=== PATIENT | male | born 1995 | race Caucasian/White ===

== ENCOUNTER 2016-10-24 20:05 | Emergency (ER) | payer BC ==
[~2016-10-24] VITALS: Ht 167.6 cm; Wt 70.9 kg
[2016-10-24 20:32] VITALS: TEMP 36.9; Ht 167.6 cm; Wt 70.9 kg
[2016-10-24] MEDS ORDERED: ACETAMINOPHEN 325 MG TAB PO STA (21:02)
--- NOTE | 2016-10-24 21:51 | DIAGNOSTIC IMAGING REPORT ---
CT OF THE HEAD WITHOUT CONTRAST CLINICAL HISTORY: Struck in occipital region with soccer ball. +LOC COMPARISON STUDY: No previous studies for comparison. CT DOSE: 537.48 mGy.cm TECHNIQUE: Helical axial images of the head were obtained without IV contrast. Automated exposure control was utilized for the study. FINDINGS: No acute intracranial cranial hemorrhage, midline shift or mass effect is present. Brain is normal. Ventricular system is normal. Basilar cisterns are patent. There are no extra axial collections. Noland-white differentiation is maintained. There is no calvarial fracture. There is minimal mucosal thickening of the ethmoid sinuses. Mastoid air cells are clear. IMPRESSION: 1. No acute intracranial findings. 2. No calvarial fracture. Electronically signed by: Nino Sargent M.D. 10/24/2016 9:49 PM Dictated Date/Time: 10/24/2016 9:48 PM
--- NOTE | 2016-10-24 22:35 | EMERGENCY ROOM VISIT NOTE ---
History First contact with patient: 20:55 Chief Complaint: HEAD INJURY (MINOR) Stated Complaint: CONCUSSION History of Present Illness The patient is a 21 year old male who presents to the Emergency Room via private vehicle with complaints of "concussion". The patient states that around 7:20 PM he was participating an intramural soccer when an individual kicked the ball with a lot of force, subsequently the ball struck him in the back of the head. He states that he lost consciousness and stumbled. He states that he was evaluated by medical personnel who thought he may have had a concussion. There is associated nausea, and dizziness. He denies any neck pain , vision changes, vomiting, chest pain. Review of Systems A complete 6-point Review of Systems was discussed with the patient, with pertinent positives and negatives listed in the History of Present Illness. All remaining Review of Systems questions can be considered negative unless otherwise specified. Past Medical/Surgical History No pertinent past medical history at this time. Family History No pertinent family history at this time. Social History Smoking Status: Never Smoker Social History: Patient is a [employer] student. Current/Historical Medications No Active Prescriptions or Reported Meds Allergies Coded Allergies: No Known Allergies (Unverified , 10/24/16) Physical Exam Vital Signs Date Time Temp Pulse Resp B/P Pulse Ox O2 Delivery O2 Flow Rate FiO2 10/24/16 22:50 72 18 109/74 98 10/24/16 20:59 18 98 10/24/16 20:32 36.9 83 18 139/99 98 Room Air Physical Exam VITAL SIGNS - Vital signs and nursing notes were reviewed. Patient is afebrile , blood pressure 139/99, non-tachycardic and saturating well on room air 98%. GENERAL -21-year-old male appearing his stated age. Communicates well with provider and answers questions appropriately. SKIN -no breaks in the integument. HEAD - Normocephalic, Atraumatic. No Fulton's Sign or Raccoon's Eyes. No depressed skull fractures palpable. No evidence of skull fracture. There is occipital region tenderness. EYES - PERRL with EOMI bilaterally. Without subconjunctival hemorrhage. Palpebral conjunctiva pink and moist with no injection. EARS - No deformities of external structures noted on gross examination bilaterally. No hemotympanum present. No tympanic perforation noted. Handle of malleus, umbo, cone of light, pars tensa/flaccid all easily visualized. NOSE - Midline and without cyanosis. No epistaxis or clear watery discharge noted. Septum midline without deviation. MOUTH/OROPHARYNX - Without perioral cyanosis. Tongue midline with equal elevation of palate bilaterally. No blood noted in the oropharynx. No tonsillar hypertrophy, erythema, or exudates noted. No dental fractures noted. NECK - no tenderness to palpation over the cervical spinous processes. No cervical paraspinal muscle tenderness noted. LUNGS - Chest wall symmetric without accessory muscle use, intercostals retractions, or central cyanosis. No flail chest or depressed fractures noted. No paradoxical chest wall movements noted. No tenderness to palpation across the anterior and posterior chest shaw. Normal vesicular breath sounds CTA B/ L. No wheezes, rales, or rhonchi appreciated. CARDIAC - RRR with S1/S2. No murmur, rubs, or gallops appreciated. EXTREMITIES - No gross deformities noted of the extremities. No tenderness to palpation of the extremities. +3/5 radial and dorsalis pedis pulses palpated throughout. +5/5 strength noted in UE/LE bilaterally. NEUROLOGIC - Cranial nerves II through XII grossly intact. Sensory intact to light touch throughout. Patellar reflexes +2/4. PSYCH - A&Ox3 and cooperates fully with examiner. Pt is very pleasant and interacts well with examiner. Medical Decision & Procedures ER Provider Diagnostic Interpretation: CT OF THE HEAD WITHOUT CONTRAST CLINICAL HISTORY: Struck in occipital region with soccer ball. +LOC COMPARISON STUDY: No previous studies for comparison. CT DOSE: 537.48 mGy.cm TECHNIQUE: Helical axial images of the head were obtained without IV contrast. Automated exposure control was utilized for the study. FINDINGS: No acute intracranial cranial hemorrhage, midline shift or mass effect is present. Brain is normal. Ventricular system is normal. Basilar cisterns are patent. There are no extra axial collections. Noland-white differentiation is maintained. There is no calvarial fracture. There is minimal mucosal thickening of the ethmoid sinuses. Mastoid air cells are clear. IMPRESSION: 1. No acute intracranial findings. 2. No calvarial fracture. Electronically signed by: Nino Sargent M.D. Medications Administered Medications (Trade) Dose Ordered Sig/Tran Route Start Time Stop Time Status Last Admin Dose Admin Acetaminophen (Tylenol Tab) 650 mg NOW STAT PO 10/24/16 21:02 4/5/17 21:03 DC 10/24/16 21:10 650 MG Medical Decision Patient was seen and evaluated as above. After obtaining a thorough history and physical examination benefits versus risk of obtaining CT scan of the head was initiated. The decision was made to scan. Patient presents with symptoms of a concussion. CT scan was negative with results as above. Patient was educated upon management. He was educated on the importance of follow-up with [facility]. There were no neurologic deficits on exam. He'll be diagnosed with a concussion. He had questions prior to discharge, educated upon worrisome symptoms which to return and was discharged home in good condition. In the evaluation and treatment of this patient, the following differential diagnoses were considered: Concussion, Contrecoup Injury, Brain Tumor, Depression, Encephalitis, Hypothyroidism, Meningitis, CVA, TIA, Migraine, Cluster Headache, Intracranial Abnormality, Intracranial Hemorrhage, Subdural Hematoma, Subarachnoid Hemorrhage, Hydrocephalus. Impression Primary Impression: Closed head injury Additional Impression: Concussion Departure Information Dispostion Home / Self-Care Condition GOOD Prescriptions No Active Prescriptions or Reported Meds Referrals [facility] (PCP) Patient Instructions My [facility] Additional Instructions You have been treated in the Emergency Department for a Closed Head Injury. CT Scan of your head/brain demonstrated no acute bleeding or other abnormalities. This does not completely rule out the risk for future damage to the brain. For pain control, you can use the following [id number] medicines (if >12 yo): - Regular strength (325mg/tab) Tylenol (acetaminophen) 2 tabs every 6 hours as needed. Do not exceed 12 tablets in a 24 hour period. Avoid taking more than 3 grams (3000 mg) of Tylenol per day. This includes any other sources of acetaminophen you may take on a regular basis. - Regular strength (200 mg/tab) Advil (ibuprofen) 1-2 tabs every 4-6 hours as needed. Do not exceed a dose of 3200 mg per day. You should relax in a quiet, dark place for the rest of the day. Avoid any possible triggers including: cigarette smoke, caffeine, nicotine, chocolate, wine, beer, loud noises or music, or bright lights. You should schedule a follow-up appointment in 2-3 days with your Primary Care Provider or established Neurologist for further evaluation and treatment of your Headache. Please schedule a follow-up with the personnel services in the next 2-3 days for recheck. Please return here sooner for worsening of your symptoms. You should NOT return to athletic play until reevaluated by your Contract Serviceman. You should fully comply with their standard protocol regarding head injuries. Your Contract Serviceman OR Primary Care Provider will have the final say in your return to athletic play. This timeframe should be AT LEAST 1 week AFTER the date of last symptoms experienced! This is ESSENTIAL to allow for adequate brain healing time and for reduced risk of re-injury. Return to the Emergency Department if your current symptoms worsen despite treatment course outlined above, or if you develop any of the following symptoms : intractable pain despite aforementioned treatment course, visual disturbances , loss of vision, unilateral weakness or facial drooping, slurring of speech, loss of coordination, or loss of consciousness. Please return to the emergency department with any new/concerning symptoms. Problem Qualifiers
[2016-10-24 22:50] VITALS: BP 109/74; PULSE 72; O2SAT 98
== END 2016-10-24 22:50 | disposition home or self-care (01) ==
LOC: C.EDB 20:08 → C.EDD 22:50
DX: S06.0X9A Concussion with loss of consciousness of unspecified duration, initial encounter (principal); W21.89XA Striking against or struck by other sports equipment, initial encounter; Y93.66 Activity, soccer; Y99.8 Other external cause status